=== PATIENT | male | born 1965 | race Caucasian/White ===

== ENCOUNTER 2020-10-03 09:55 | Outpatient (REF) | payer MEDICARE, MEDICAID, SELFPAY ==
--- NOTE | 2020-10-03 11:47 | MHC.AU.P13 ---
Adult Audiological Evaluation Date of Visit: 10/03/20 Product Finisher Used: ASL- In Person Reason for Appointment: Audiologic re-evaluation as required by Juan's state program. He has a history of profound bilateral hearing loss, and is non-verbal using [place]ag[place] Sign Language as his primary language. He is accompanied today by a staff member of his [facility]. Juan used hearing aids in the past, but was unsuccessful and does not want to use. Does patient feel they have a hearing loss?: Yes If Yes, Which Ear?: Both Ears When Was Hearing Difficulty First Noticed?: Unknown Has hearing been tested previously?: Yes Previous Hearing Test Results: December 2018 [facility] Profound bilateral sensorineural hearing loss through all frequencies. Medical History: Medical History: Prostate Cancer Medical History: Developmental Delays and mood disorder Allergies: Unknown Medication List: Prilosec, Neurontin, Luvox, and Risperdal Otoscopy: Right Ear: Unremarkable Left Ear: Unremarkable Tympanometry: Right Ear: Normal Middle Ear System (Type A) Left Ear: Normal Middle Ear System (Type A) Otoacoustic Emissions Right Ear Results: Not performed at today's visit. Left Ear Results: Not performed at today's visit. Hearing Evaluation: Transducer(s) Used: Insert Earphones Bone Conduction Method: Conventional Audiometry Stimuli Used: Pure Tones Right Ear: Description of Hearing: Profound sensorineural hearing loss through all frequencies with mixed component noted at 1000 Hz Left Ear: Description of Hearing: Profound sensorineural hearing loss through all frequencies with mixed component noted at 1000 Hz Speech Recognition Threshold (SRT): Method Used: Not performed at today's visit. Non-verbal Word Discrimination: Method: Not performed at today's visit. Non-verbal Comparison: Compared to the most recent evaluation: Hearing is stable. Recommendations: Recommendations (Other): Audiologic re-evaluation as required by Juan's state program. Diagnosis: Primary Diagnosis: H90.3 Bilateral Sensorineural Hearing Loss Services Performed: Services Performed: Pure Tone- Air & Bone (CPT 29973) Speech Audiometry Threshold (SRT/SAT) (CPT 85692) Tympanometry (CPT 60423) Signature: Provider: Jose Curry, ROMMEL-A
== END 2020-10-03 09:56 | disposition home or self-care (01) ==
LOC: HO.SH 09:55
PROVIDERS: Visit Provider Internal Medicine
DX: H90.3 Sensorineural hearing loss, bilateral (principal)
CPT/HCPCS: 92553; 92555; 92567

== ENCOUNTER 2021-12-15 12:31 | Outpatient (REF) | payer MEDICARE, MEDICAID, SELFPAY ==
--- NOTE | 2021-12-15 13:09 | MHC.AU.ANR ---
Adult Audiological Evaluation Date of Visit: 12/15/21 Reason for Appointment: History of profound sensorineural hearing loss. Patient communicates through ASL and is non-verbal. He has used hearing aids in the past and was not successful with them. Patient arrives for re-evaluation per protocol of his state residential program. Has hearing been tested previously?: Yes Previous Hearing Test Results: At this clinic on 10/03/2020- Profound sensorineural hearing loss bilaterally Medical History: Medical History: Developmental Delay, mood disorder, prostate cancer Otoscopy: Right Ear: Unremarkable Left Ear: Unremarkable Tympanometry: Tympanometry performed due to: To assess integrity of the middle ear system Right Ear: Normal Middle Ear System (Type A) Left Ear: Normal Middle Ear System (Type A) Hearing Evaluation: Transducer(s) Used: Insert Earphones Method: Conventional Audiometry Stimuli Used: Pure Tones Right Ear: Description of Hearing: Profound sensorineural hearing loss Left Ear: Description of Hearing: Profound sensorineural hearing loss Speech Recognition Threshold (SRT): Right Ear: Could not test Left Ear: Could not test Word Discrimination: Right Ear: Could not test Left Ear: Could not test Comparison: Compared to the most recent evaluation: Thresholds have decreased bilaterally. Recommendations: Audiological re-evaluation as needed. Diagnosis: Primary Diagnosis: H90.3 Bilateral Sensorineural Hearing Loss Signature: Provider: Jose Jade, CCC-A
== END 2021-12-15 12:32 | disposition home or self-care (01) ==
LOC: HO.SH 12:31
PROVIDERS: Visit Provider Nurse Practitioner Adult Health
DX: Z01.118 Encounter for examination of ears and hearing with other abnormal findings (principal); H90.3 Sensorineural hearing loss, bilateral
CPT/HCPCS: 92553; 92567

== ENCOUNTER 2023-01-01 12:35 | Outpatient (REF) | payer MEDICARE, MEDICAID, SELFPAY | END 2023-01-01 12:36 | disposition home or self-care (01) | LOC: HO.SH 12:35 | PROVIDERS: Visit Provider Nurse Practitioner Adult Health | DX: H90.3 Sensorineural hearing loss, bilateral (principal) | CPT/HCPCS: 92552; 92567 ==

== ENCOUNTER 2023-12-30 12:25 | Outpatient (REF) | payer MEDICARE, MEDICAID, SELFPAY | END 2023-12-30 12:26 | disposition home or self-care (01) | LOC: HO.SH 12:25 | PROVIDERS: PCP Internal Medicine; Visit Provider Internal Medicine | DX: Z13.89 Encounter for screening for other disorder (principal) ==

== ENCOUNTER 2024-02-11 13:59 | Outpatient (REF) | payer MEDICARE, MEDICAID, SELFPAY | END 2024-02-11 14:00 | disposition home or self-care (01) | LOC: HO.SH 13:59 | PROVIDERS: Visit Provider Internal Medicine | DX: Z01.118 Encounter for examination of ears and hearing with other abnormal findings (principal); H90.3 Sensorineural hearing loss, bilateral | CPT/HCPCS: 92552; 92555 ==